=== PATIENT | female | born 2005 | race Caucasian/White ===

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

== ENCOUNTER → 2025-07-17 | Outpatient (CLI) | payer OTHER, SELFPAY ==
--- OUTSIDE RECORDS SUMMARY | 2025-07-17 16:45 | XMS RPT_ITS | CCD ---
Author Organization [facility] Care Team Providers Care Benefit Director Name Role Phone Nena Collier Primary Care Provider [phone] GEOVANNA MAC Attending Treasurei labNENA [facility] Unavailable GEOVANNA MAC Admitting Unavai labcandelaria Problems Problem Classification Problem Date Documented Da te Episodic/Chronic Sprains and strains (1 source) Sprain of ligament of elbow; Translations: [Sprain of right elbow, initial encounter] Episodic Results Test Name Value Interpretation Reference Range Facil ity Lower Ext Joint Only (Routin e)on 10-20-2020 Lower Ext Joint Only (Routine) [facility] Imaging Services [address] [place] [address] Lower Ext Joint Only (Routine) MR#: [id number] Acct: [id number] Name: FERDINAND KIMBROUGH Rep #: [id number] : 2005 F 14 From: Kieran Rolle PCP: Dr. Nena Collier MD Status: REG CLI Study: Lower Ext Joint Only (Routine) Date of Exam: 0 10/20/20 Exam# [id number] Ordering Dr: Nena Collier MD STUDY: MRI LEFT KNEE REASON FOR EXAM: Anterior and posterior left knee pain, basketball injury 1 month ago. TECHNIQUE: Standardized fat and water weighted pulse sequences were obtained in all 3 orthogonal planes. COMPARISON: None. FINDINGS: There is mild peripheral vascularity of the posterior horn of the medial meniscus without discrete medial meniscal tear. Normal hyaline cartilage of the medial femorotibial compartment. Normal medial femoral condyle and tibial plateau. Normal medial collateral ligamentous complex (MCL). Normal distal semimembranosus, gracilis and semitendinosus tendons. Normal lateral meniscus. Normal hyaline cartilage of the lateral femorotibial compartment. Normal lateral femoral condyle and tibial plateau. Normal proximal tibiofibular articulation. Normal lateral collateral (fibular) ligament. Normal popliteus tendon. Normal biceps femoris tendon. Normal anterior cruciate ligament (series 9 image 7). There is a complete tear of the posterior cruciate ligament at the genu (T2 sagittal images 10-12). Normal congruent patellofemoral articulation. Normal hyaline cartilage of the patellofemoral compartment. Normal medial and lateral patellar retinaculum. Normal quadriceps tendon. Normal patellar tendon. Normal Hoffa''s fat pad. There is a small joint effusion. There is a small popliteal cyst (T2 sagittal images 5-7). The otherwise visualized osseous structures are unremarkable. MRI/Lower Ext Joint Only (Routine) IMPRESSION: Posterior cruciate ligament tear. Small joint effusion. Small popliteal cyst. Electronically Signed: Kieran Meyers MD at 14:35 EST Tel , Service support , CC: Dr. Nena Collier MD Data Deliverables Manager: Signed Normal [facility] Ext Non Vasc Limited/Soft Ti [facility] 03-17-2020 Ext Non Vasc Limited/Soft Tiss [facility] Imaging Services [address] [place] [id number] Ext Non Vasc Limited/Soft Tiss MR#: [id number] Acct: [id number] Name: FERDINAND KIMBROUGH Rep #: [id number] : 2005 F 14 From: Meek Grimm i, MD PCP: Dr. Nena Collier MD Status: REG CLI Study: Ext Non Vasc Limited/Soft Tiss Date of Exam: 0 03/17/20 Exam# [id number] Ordering Dr: Aruna Rainey JUNIOR ACCOUNTING CLERK-C STUDY: SUPERFICIAL ULTRASOUND - RIGHT POSTERIOR CALF BRUISE REASON FOR EXAM: Female, 14 years old. RT POSTERIOR CALF BRUISE - NO LUMP FELT TECHNIQUE: A superficial ultrasound was performed with real-time and static mcpherson-scale imaging. COMPARISON: None. FINDINGS: There is no evidence of hematoma, cyst, or focus of architectural distortion in the region of interest. US/Ext Non Vasc Limited/Soft Tiss IMPRESSION: Unremarkable study. Electronically Signed: Meek Griffin MD at 19:51 EDT , Service support , CC: DONALDO Rainey; Dr. Nena Collier MD Data Deliverables Manager: Signed Normal [facility] Venous Duplex US, Unilateral on 03-13-2020 Venous Duplex US, Unilateral [facility] [address] [place] [address] Venous Duplex US, Unilateral 03/13/20 1505 MR#: [id number] Acct: [id number] Name: FERDINAND KIMBROUGH Rep #: [id number] : 2005 14 From: Davide Cotton MD Attending Dr: DONALDO Obrien Status: REG CLI Ordering Dr: Aruna Rainey Date: 03/13/20 Location: [facility] Sex: F C Admitted: Reason For Study: Calf pain RIGHT GSV is normal. CFV is compressible, spontaneous, phasic, competent and demonstrates normal augmentation. FV is compressible, spontaneous, phasic, competent and demonstrates normal augmentation. POP V is compressible, spontaneous, phasic, competent and demonstrates normal augmentation. T/P Trunk is compressible. PTV is compressible. RT PerV is compressible. Procedure Exam performed in department. A preliminary report was called and/or faxed to [facility]. Interpretation Summary Deep veins of the right lower extremity are patent and compressible segmentally. There is no evidence of right lower extremity deep vein thrombosis. Valvular competence appears intact within the proximal deep venous system on the right . The right great saphenous vein appears patent and compressible segmentally. _ Ordering Physician: Aruna Rainey Referring Physician: Nena Collier Performed By: Rosemarie Zelaya, RVArik 03/13/201999 Date Davide Cotton MD CC: JUNIOR ACCOUNTING CLERK-C Aruna Rainey; Dr. Nena Collier MD Date Dictated: 03/13/20 1505 Date Transcribed: 03/13/201999 Data Deliverables Manager: Signed [facility] XR ELBOW RIGHT 3+ VIEWS (STA NDARD)on 01-06-2019 XR ELBOW RIGHT 3+ VIEWS (STANDARD) EXAMINATION: 3 XRAY VIEWS OF THE RIGHT ELBOW 01/06/2019 7:42 pm COMPARISON: None. HISTORY: ORDERING SYSTEM PROVIDED HISTORY: elbow pain s/p playing basketball; TECHNOLOGIST PROVIDED HISTORY: Reason for Exam: basketball/fall Injury/Trauma Acuity: Acute Cancer History: n Surgery, Radiation History: n Type of Encounter: Initial Mechanism of Injury: fall FINDINGS: No acute fracture or dislocation. Joint spaces and alignment are maintained. Soft tissues are unremarkable. No joint effusion. IMPRESSION: No acute osseous abnormality. Workstation ID: [id number] Dictated by: ESTEBAN BERRY on Sat January 06, 2019 8:02:18 PM EDT Transcribed by: ESTEBAN BERRY on Sat January 06, 2019 8:02:18 PM EDT Finalized by: ESTEBAN BERRY on [facility] January 06, 2019 8:02:18 PM EDT Dictated by: ESTEBAN BERRY on Sat January 06, 2019 8:02:18 PM EDT Transcribed by: ESTEBAN BERRY on Sat January 06, 2019 8:02:18 PM EDT Finalized by: ESTEBAN BERRY on Sat January 06, 2019 8:02:18 PM EDT [facility] Comment on above: Order Comment: Reaso n for exam?:basketball/fall Injury/Trauma or Illness?:Injury/Trauma How long have you had these symptoms (acute/chronic)?:Acute History of cancer?:n Surgeries, chemotherapy, or radiation?:n Type of Exam?:Initial Mechanism of injury?:fall XR Elbow Right 3+ Views (Sta ndard)on 01-06-2019 No acute osseous abnormality. Workstation ID: [id number] [facility] EXAMINATION: 3 XRAY VIEWS OF THE RIGHT ELBOW 01/06/2019 7:42 pm COMPARISON: None. HISTORY: ORDERING SYSTEM PROVIDED HISTORY: elbow pain s/p playing basketball; TECHNOLOGIST PROVIDED HISTORY: Reason for Exam: basketball/fall Injury/Trauma Acuity: Acute Cancer History: n Surgery, Radiation History: n Type of Encounter: Initial Mechanism of Injury: fall FINDINGS: No acute fracture or dislocation. Joint spaces and alignment are maintained. Soft tissues are unremarkable. No joint effusion. [facility] Odilon, Reynaldo In Paul Torresq - 01/06/2019 8:04 PM EDT EXAMINATION: 3 XRAY VIEWS OF THE RIGHT ELBOW 01/06/2019 7:42 pm COMPARISON: None. HISTORY: ORDERING SYSTEM PROVIDED HISTORY: elbow pain s/p playing basketball; TECHNOLOGIST PROVIDED HISTORY: Reason for Exam: basketball/fall Injury/Trauma Acuity: Acute Cancer History: n Surgery, Radiation History: n Type of Encounter: Initial Mechanism of Injury: fall FINDINGS: No acute fracture or dislocation. Joint spaces and alignment are maintained. Soft tissues are unremarkable. No joint effusion. IMPRESSION: No acute osseous abnormality. Workstation ID: [id number] [facility] Vital Signs Date Time Vital Sign Value Performing Clinician Farzana lechuga 01-06-2019 19:21-0400 BMI (Body Mass Index) 24.63 kg[facility]2 [facility]-06-[facility] 19:21-0400 Body Temperature 98.71 [degF] [facility] 01-06-2019 19:21-0400 BP Diastolic 59 mm[Hg] Geovanna Mac [facility] 01-06-2019 19:21-0400 BP Systolic 90 mm[Hg] Geovanna Mac [facility] 01-06-2019 19:21-0400 Height 165.1 cm Geovanna Mac [facility] 01-06-2019 19:21-0400 Pulse (Heart Rate) 73 /min [facility]anna [facility] 01-06-2019 19:21-0400 Pulse Oximetry 99 % Geovanna Mac [facility] 01-06-2019 19:21-0400 Respiratory Rate 16 /min [facility]anna [facility] 01-06-2019 19:21-0400 Weight 67.13 kg [facility]annagoran [facility] Encounters Encounter Date Encounter Type Care Provider Facility Start: 01-06-2019 End: 01-06-2019 Emergency department patient visit [facility]NA [facility] Start: 01-06-2019 End: 01-06-2019 Emergency department patient visit Geovanna Mac Work Phone: [facility] Emergency Department Comment on above: Sprain of right elbo w, initial encounter (Primary Dx) Procedures Date Procedure Procedure Detail Performing Clinician Start: 01-06-2019 Radex elbow complete minimum 3 views Shira Mercado Work Phone: Payers Date Payer Category Payer Unknown [facility] xxxxxxxxxxx 2018-Present xxxxxxxxxxx [id number] 2018 Unknown [id number] 1980 Unknown [id number] Social History Date Type Detail Facility Start: 01-06-2019 Tobacco smoking status DCIS Unknown if ever smoked [facility] Sex Assigned At Not on file [facility] Discharge Instructions * Attachments The following attachments cannot be sent through Care Everywhere. * Elbow Sprain: Pediatric (Stateless) * Elbow: Exercises (Stateless) documented in this encounter Assessments Diagnosis Sprain of right elbow, initial encounter- Primary Advance Directives Patient has advance care planning documents on file. For more information, please contact: [place] [address] No Advanced Directives Records FoundNo Advanced Directives Records Found Summary Purpose Family History No Family History Records FoundNo Family History Records Found Additional Source Comments Reason for Visit (unrecogniz ed section and content) Reason Comments Elbow Injury Swathi Dumont, MAURI - 01/06/2019 8:38 PM EDTShira Mercado CNP - 01/06/2019 7:40 PM EDTSSwathi goddard RN - 01/06/2019 7:20 PM EDT ED Notes (unrecognized secti on and content) Sling applied to right arm. Pt tolerated well. Pms intact. PCP: Nena Collier MD Chief Complaint Patient presents with Elbow Injury HPI: HPI HPI, 13-year-old female who presents emergency department with mother. Patient complained of having right elbow pain. Patient states about 1 hour prior to arrival she was playing basketball and another girl were going after the ball and she hit her right elbow on the ground. Patient states that it feels better when it is at a 90 degree angle against her body. She is able to stretch it outward but states to having more pain. States the pain is right on the elbow with no radiation. Moves fingers freely. Denies any numbness or tingling. Patient got 2 ibuprofen prior to arrival by mother. Arrives here for further evaluation treatment. REVIEW OF SYSTEMS: Review of Systems Constitutional: no fevers Skin: no rash Eyes: no discharge ENMT: No sore throat Genitourinary: No dysuria Endocrine: No polyuria Neurologic: No new numbness Psychiatric: No hallucinations Hematologic/Lymphatic: No abnormal bruising Allergic/Immunologic: no urticaria Past Medical History: History reviewed. No pertinent past medical history. Past medical history reviewed. Past Surgical History: No past surgical history on file. Past surgical history reviewed. Family History: History reviewed. No pertinent family history. Family history reviewed. Social History: Social History Socioeconomic History Marital status: Single Spouse name: Not on file Number of children: Not on file Years of education: Not on file Highest education level: Not on file Social Needs Financial resource strain: Not on file Food insecurity - worry: Not on file Food insecurity - inability: Not on file Transportation needs - medical: Not on file Transportation needs - non-medical: Not on file Occupational History Not on file Tobacco Use Smoking status: Not on file Substance and Sexual Activity Alcohol use: Not on file Drug use: Not on file Sexual activity: Not on file Other Topics Concern Not on file Social History Narrative Not on file Social history reviewed. Allergies: No Known Allergies Medications: There are no discharge medications for this patient. PHYSICAL EXAMINATION: Vital Signs BP 90/59 Pulse 73 Temp 98.7 F (37.1 C) (Oral) Resp 16 Ht 5' 5 Wt 67.1 kg (148 lb) LMP 12/17/2018 SpO2 99% BMI 24.63 kg/m Physical Exam Constitutional: She is oriented to person, place, and time. She appears well-developed and well-nourished. No distress. HENT: Head: Normocephalic. Nose: Nose normal. Eyes: Pupils are equal, round, and reactive to light. Neck: Normal range of motion. Neck supple. Cardiovascular: Normal rate. Pulmonary/Chest: Effort normal. Abdominal: Soft. There is no tenderness. Musculoskeletal: Normal range of motion. Right elbow: She exhibits no swelling and no effusion. Tenderness found. Radial head tenderness noted. Arms: Neurological: She is alert and oriented to person, place, and time. Skin: Skin is warm and dry. Capillary refill takes less than 2 seconds. Psychiatric: She has a normal mood and affect. Nursing note and vitals reviewed. Vital Signs During ED Visit (as charted by nursing) Patient Vitals for the past 24 hrs: BP Temp Temp src Pulse Resp SpO2 Height Weight 01/06/19 1921 90/59 98.7 F (37.1 C) Oral 73 16 99 % 5' 5 67.1 kg (148 lb) MEDICAL DECISION MAKING: Medical decision making, patient presents to the ER with a localized injury to her right elbow while playing basketball. She is full range of motion. Pain with palpation around the radial head. Moves fingers freely. No numbness or tingling. 5 out of 5 strength. No effusion ecchymosis erythema or warmth noted. X-ray of the elbow was done read by the radiologist showing no acute osseous abnormality. Vital signs are stable. Discussed with patient regarding ibuprofen and Tylenol as needed for discomfort. Ice to the sites. Did provide her with a sling for 24 hours and told her to take it off and do range of motion to prevent any stiffness. Patient mother in agreement with this plan. Patient will follow-up with family doctor in 1 week if continues to have pain as an occult fracture can not be ruled out. Mother voiced understanding. IMPRESSION: SNOMED CT(R) 1. Sprain of right elbow, initial encounter SPRAIN OF LIGAMENT OF ELBOW Plan- discharge home Condition- stable PROCEDURES (if any, during ED visit): Procedures DIAGNOSTICS: Laboratory (if any, during ED visit): Labs Reviewed - No data to display RADIOGRAPHIC IMAGING (if any, during ED visit): XR Elbow Right 3+ Views (Standard) Final Result No acute osseous abnormality. Workstation ID: [id number] MEDICATIONS ORDERED/GIVEN (if any, during ED visit): Medications - No data to display Shira Mercado CNP 01/06/192036 Pt reports c/o right elbow pain. Reports injured playing basketball approx 1 hr ferry [place]. Pt able to move extremities and digits. Pms intact. Radial pulse 2+, cap refill brisk. Mother states gave pt ibuprofen. documented in this encounter ED Attestation Note - Geovanna Mac MD - 01/06/2019 8:25 PM EDT Miscellaneous Notes (unrecog nized section and content) ED Attestation: I was personally available for consult in the emergency department. I have reviewed the chart and agree with the documentation as recorded by the PERRY (Advanced Practice Provider), including the assessment, treatment plan, and disposition. documented in this encounter INFORMATION SOURCE (unrecogn ized section and content) DATE CREATED AUTHOR 03/31/2019 [facility] DATE CREATED AUTHOR AUTHOR'S ORGANIZ ATION 11/28/2020 [facility] FOR RECORDS PERTAINING TO PATIENTS WHO ARE OR HAVE BEEN ENROLLED IN A CHEMICAL DEPENDENCY/SUBSTANCEABUSE PROGRAM, SOME INFORMATION MAY BE OMITTED. This clinical summary was aggregated from multiple sources. Caution should be exercised in using it in the provision of clinical care. This summary normalizes information from multiple sources, and as a consequence, information in this document may materially change the coding, format and clinical context of patient data. In addition, data may be omitted in some cases. CLINICAL DECISIONS SHOULD BE BASED ON THE PRIMARY CLINICAL RECORDS. [employer] provides no warranty or guarantee of the accuracy or completeness of information in this document.
== END | disposition home or self-care (01) ==
LOC: LABSPEC 16:32
PROVIDERS: PCP Family Medicine; Referring Provider Nurse Practitioner Family; Visit Provider Nurse Practitioner Family
DX: Z12.4 Encounter for screening for malignant neoplasm of cervix (principal)
CPT/HCPCS: 88175; G0145